=== PATIENT | female | born 1995 | race Asian ===

== ENCOUNTER 2018-06-25 07:42 | Day surgery (SDC) | payer OTHER ==
[2018-06-25] MEDS: SOD CHLORIDE 0.9% 1,000 ML IV (06:00)
[2018-06-25] MEDS: CEFAZOLIN 2 GM/50 ML (PMX) 50 ML IVPB (06:00)
[2018-06-25] MEDS: ACETAMINOPHEN 500 MG TAB PO (09:07)
[2018-06-25] MEDS ORDERED: BUPIVACAINE 0.5%/EPI (SDV) 30 ML INJ (10:45)
[2018-06-25] MEDS ORDERED: morphine 2 MG INJ IV ×2 (11:00)
[2018-06-25] MEDS ORDERED: FENTAnyl 50 MCG/ML VIAL (11:00)
[2018-06-25] MEDS ORDERED: ALBUTEROL 0.083% (NEB) 2.5 MG/3 ML AMP HHN (11:00)
[2018-06-25] MEDS ORDERED: MIDAZOLAM 1 MG/ML 2 ML INJ (11:00)
[2018-06-25] MEDS ORDERED: MEPERIDINE 25 MG INJ IV (11:00)
[2018-06-25] MEDS ORDERED: FENTAnyl 50 MCG/ML VIAL IV ×2 (11:00)
[2018-06-25] MEDS ORDERED: DIPHENHYDRAMINE 50 MG INJ IV (11:00)
[2018-06-25] MEDS ORDERED: HYDROmorphONE 1 MG/5 ML IV SYRINGE IV (11:00)
[2018-06-25] MEDS ORDERED: LABETALOL HCL 20MG INJ IV (11:00)
[2018-06-25] MEDS ORDERED: OXYCODONE/ACETAMINOPHEN (5/325) TAB PO ×2 (11:00)
[2018-06-25] MEDS ORDERED: ONDANSETRON 4 MG INJ IV (11:00)
[2018-06-25] MEDS ORDERED: CEFAZOLIN 1 GM INJ (11:16)
[2018-06-25] MEDS ORDERED: LIDOCAINE 2% (SDV) 5 ML INJ (11:16)
[2018-06-25] MEDS ORDERED: FAMOTIDINE 20 MG INJ (11:16)
[2018-06-25] MEDS ORDERED: PROPOFOL 40 ML (11:16)
[2018-06-25] MEDS ORDERED: ONDANSETRON 4 MG INJ (11:17)
[2018-06-25] MEDS ORDERED: PHENYLephrine (100 MCG/ML) 10ML SYG (11:17)
[2018-06-25] MEDS ORDERED: HYDROCODONE/APAP (7.5/325) TAB PO (12:00)
[2018-06-25] MEDS: HYDROmorphONE 1 MG/5 ML IV SYRINGE IV ×3 (12:06→12:24)
== END 2018-06-25 13:28 | disposition home or self-care (01) ==
LOC: SDS 07:42
DX: D24.1 Benign neoplasm of right breast (principal)
CPT/HCPCS: 19120